=== PATIENT | female | born 1990 | race Caucasian/White ===

== ENCOUNTER 2021-06-29 14:38 | Emergency (ER) | payer SELFPAY ==
[2021-06-29] VITALS (20 sets, daily range): BP systolic 99–141; BP diastolic 66–91; PULSE 95–119; RESP 9–20; TEMP 36.5; O2SAT 97–100
--- NOTE | 2021-06-29 14:45 | RT.EKG_ITS ---
APPROVED REPORT Exam: Resting ECG Reason for Exam: overdose Patient Location: E HR:111 bpm ECG Measurements Heart Rate 111 AXIS AL 142 P 50 QRSd 81 QRS 67 QT 338 T 4 QTc 460 Conclusion Sinus tachycardia...rate> 99
--- NOTE | 2021-06-29 14:55 | ED.GENADUL_ITS ---
Discharge Plan Disposition Patient Disposition: HOME Condition: Stable Discharge Details Clinical Impression: Drug reaction, Urinary tract infection Primary Care Provider: Olena,Local ED Provider: Tj Singh Home Meds and New Rx's Prescriptions: New nitrofurantoin monohyd/m-cryst [Macrobid] 100 mg capsule 100 mg PO Q12H 5 Days Qty: 10 RF: 0 Discharge Instructions Instructions: Urinary Tract Infection in Women (ED) Additional Instructions: follow up with your primary care provider within 1 week you are being treated for a urinary tract infection if you feel more ill, have severe worsening pain or persistent vomit return to the emergency department Medical Decision Making 30 yo female who has a history per her report of subtanse abuse comes in after she inhaled an unknown drug that was given to her and shortly after started to feel like her insides are burning and weakness. She states she was given an unknown drug in a tablet form, has no way of findings out what it was. She inhaled it through her nose after crushing it. SHe denies loc and has no chest pain. SHe is very anxious on exam and is restless in the bed, caox4 with clear speech, no focal neuro deficits, denies alcohol use today. No si/hi. Suspect based on her presentation she is having a panic attack from the drug she was given. Will evaluate for other co-ingestants and treat with ativan and reassess. pt less anxious and feels better no longer having her previous symptoms, urine does have evidence of uti on urine and has had 1 week of burning, no fevers or cva tenderness so doubt pyelo. Will start macrobid. Offered football coach but patient declined. ADvised to f/u with pcp and return precautions given Differential Diagnosis Differential Diagnosis: drug reaction, overdose Lab Data Lab results reviewed: Yes I reviewed the patient's lab results. ECG Data Attestation: I personally reviewed and interpreted this ECG (s) as follows: Prior ECG tracings: not available for review Interpretation: sinus tachycardia, rate of 111, pr 142, no acute st t wave ischemic findings HPI General Mode of arrival: wheelchair . Date/Time Provider Initiated Documentation: 06/29/21 14:48 . Limitations to Documentation: no limitations . Information obtained by: patient . History of Present Illness 30 year old F presents to the emergency department with the chief complaint of not feeling right, Patient started experiencing this minute(s) (30) and it has been constant. No relieving factors improve symptom(s), No exacerbating factors reported . Patient did receive the following treatments prior to arrival, none Related Data Home Medications Medication Instructions Recorded Confirmed nitrofurantoin monohyd/m-cryst 100 mg PO Q12H 5 Days #10 cap 06/29/21 [Macrobid] Previous Rx's Medication Instructions Recorded nitrofurantoin monohyd/m-cryst 100 mg PO Q12H 5 Days #10 cap 06/29/21 [Macrobid] Allergies Allergy/AdvReac Type Severity Reaction Status Date / Time No Known Allergies Allergy Unverified 06/29/21 14:44 General Stated Complaint: OD/Poison TERESITA: 2 Review of Systems All systems reviewed & are unremarkable except as noted in HPI and below Constitutional Constitutional: Denies chills and Denies fever(s) Respiratory Respiratory: Denies cough Gastrointestinal Gastrointestinal: Denies abdominal pain and Denies vomiting Musculoskeletal Musculoskeletal: Denies joint swelling Psychiatric Psychiatric: Denies depression PFSH Social History Smoking/Tobacco Use Status: Current every day Smoking risk assessment performed?: Yes Alcohol Intake: current Alcohol Intake frequency: 3 or more drinks per day Substance use type: opiates Exam Const General: anxious Orientation: alert HENMT Head: normal to inspection Ears: external ears normal General nose exam: external nose normal Mouth: moist mucous membranes Eyes General: appearance normal, both eyes and all related structures Neck Neck: normal visual inspection Resp Effort & Inspection: normal respiratory effort and able to speak in complete sentences Cardio Rate: regular rate Skin General skin exam: no rashes or lesions noted Neuro General: patient alert and patient oriented x3 Extrem General: normal to inspection Course Vital Signs Vital signs: Vital Signs Temperature 36.5 C 06/29/21 14:44 Pulse 119 H 06/29/21 14:44 Respiratory Rate 06/29/21 14:44 Blood Pressure 141/91 H 06/29/21 14:44 Pulse Oximetry 100 06/29/21 14:44 Temperature 36.5 C 06/29/21 14:44 Temperature Source Temporal Artery Scan 06/29/21 14:44 Pulse 119 H 06/29/21 14:44 Respiratory Rate 06/29/21 14:44 Respiratory Effort Non-Labored 06/29/21 14:47 Blood Pressure 141/91 H 06/29/21 14:44 Blood Pressure Position Supine 06/29/21 14:44 Pulse Oximetry 100 06/29/21 14:44 Oxygen Delivery Method Room Air 06/29/21 14:44 Oxygen Flow Rate 0 06/29/21 14:44 Pain Level 0 06/29/21 14:44
[2021-06-29] MEDS: Normal Saline 1,000 ML 1000 ML IV (15:00)
[2021-06-29 15:07] LABS: Abs Immature Grans 0.02 10^3/uL (0.0-0.06); Absolute Basophil Count 0.03 10^3/uL (0.0-0.2); Absolute Eosinophil Count 0.04 10^3/uL (0.0-0.7); Absolute Lymphocyte Count 1.57 10^3/uL (1.2-3.4); Absolute Monocyte Count 0.39 10^3/uL (0.1-0.8); Absolute Neutrophil Count 2.61 10^3/uL (1.2-6.7); Basophils % 0.6; Eosinophils % 0.9; HCT 38.2 % (36.0-46.0); HGB 11.6 g/dL (11.2-15.7); Immature Grans % 0.4; Lymphocytes % 33.7; MCH 27.9 pg (27.0-33.0); MCHC 30.4 % (32.0-36.0); MCV 91.8 fL (80-95); MPV 9.2 fL (8.0-11.0); Monocytes % 8.4; Nucleated RBC 0 %; Platelet Count 346 10^3/uL (130-400); RBC 4.16 10^6/uL (3.93-5.22); RDW 13.2 % (11.7-14.6); WBC 4.66 10^3/uL (4.4-10.8)
[2021-06-29 15:28] LABS: ALT 57 U/L (14-59); AST 81 U/L (15-37); Albumin 3.6 g/dL (3.4-5.0); Alkaline Phosphatase 120 U/L (46-116); Anion Gap 12.5 mmol/L (3-11); BUN 6 mg/dL (7-18); Bilirubin, Total 0.2 mg/dL (0.2-1.0); CO2 25.5 mmol/L (21.0-32.0); CREATININE 1.1 mg/dL (0.55-1.02); Calcium 8.5 mg/dL (8.5-10.1); Chloride 101 mmol/L (98-107); Estimated GFR 57.93 (mL/min/1.73m2); Glucose 364 mg/dL (74-106); Potassium 3.5 mmol/L (3.5-5.1); Sodium 139 mmol/L (136-145); Total Protein 7.9 g/dL (6.4-8.2)
[2021-06-29 15:30] LABS: ETHANOL BLOOD < 3.0 mg/dL (<3)
[2021-06-29 15:41] LABS: Bilirubin Negative (Negative); Blood Trace-intact (Negative); Clarity Sl Cloudy (Clear); Glucose >=1000 mg/dL (Negative); Ketones Negative (Negative); Leukocyte Esterase Negative (Negative); Nitrite Negative (Negative)
[2021-06-29 15:45] LABS: *AMPHETAMINES SCREEN URINE Negative (Negative); *BARBITURATES SCREEN URINE Negative (Negative); *BENZODIAZEPINES SCREEN URINE Negative (Negative); Cannabinoids THC Negative (Negative); Cocaine Screen,Urine Negative (Negative); METHADONE URINE SCREEN Negative (Negative); OPIATES URINE SCREEN Positive (Negative)
[2021-06-29 15:46] LABS: Salicylate 3.8 mg/dL (<2.8)
[2021-06-29 15:46] LABS: Tricyclic Antidepressants Negative (Negative)
[2021-06-29 15:47] LABS: Acetaminophen < 2 ug/mL (10-30)
[2021-06-29 15:57] LABS: Bacteria Moderate HPF (Negative); C & S Indicated? Yes; Casts Negative LPF (Negative); Crystals Negative HPF (Negative); Epithelial Cells Few HPF (Negative); Mucus Negative (Negative); RBC 0-2 HPF (0-2)
[2021-06-29] MEDS: MacroBID 100 MG CAP PO (16:54)
== END 2021-06-29 16:53 | disposition home or self-care (01) ==
LOC: ER 16:52
PROVIDERS: Emergency Provider Emergency Medicine
DX: R00.0 Tachycardia, unspecified (principal); R45.1 Restlessness and agitation; F41.9 Anxiety disorder, unspecified; T40.2X5A Adverse effect of other opioids, initial encounter; N39.0 Urinary tract infection, site not specified; B96.20 Unspecified Escherichia coli [E. coli] as the cause of diseases classified elsewhere
CPT/HCPCS: 36415; 80053; 80307; 81025; 87077; 93005; 96360; 96361; 99284; 80320; 80329; 81003; 81015; 83735; 84443; 85025; 87086; 87186; 93010

== ENCOUNTER 2022-03-29 19:59 | Emergency (ER) | payer MEDICAID, SELFPAY ==
[2022-03-29] VITALS (33 sets, daily range): BP systolic 126–132; BP diastolic 80–86; PULSE 90–120; RESP 18; TEMP 37; O2SAT 97–100
--- NOTE | 2022-03-29 20:06 | W.ED.GENAD ---
Discharge Plan Disposition Patient Disposition: HOME Condition: Good Discharge Details Clinical Impression: Accidental overdose Primary Care Provider: Unknown,Unknown ED Provider: Claus Loco Home Meds and New Rx's Prescriptions: No Action atenolol 25 MG tablet 25 mg PO DAILY PRN Discharge Instructions Instructions: Opioid Safety (ED) Additional Instructions: At this time. Her work-up and clinical assessment is reassuring. You likely accidentally overdosed from an opiate like substance. Please continue to do your best to avoid these substances if at all possible. If you notice any worsening of your symptoms, or any new symptoms such as vomiting, diarrhea, fever, chills, shortness of breath, chest pain, numbness, weakness, or fainting , please return immediately to the emergency department for reevaluation. Please follow up with your primary care provider as soon as possible for reassessment and reevaluation. As always, it was a pleasure participating in your medical care today. Medical Decision Making This is a 31-year-old female with a past medical history of Graves' disease, anxiety/panic attacks, who presents today after overdose. EMS states they were called to the scene when the patient was in respiratory arrest. She was given Narcan 20 minutes prior to arrival here in the emergency department. She had notable improvement of her symptoms after Narcan, and began breathing normally and mentating normally shortly after administration. Patient states that she does not recall taking any drugs. She states that she was drinking alcohol but denies anything else. She states that she feels like I am in a panic attack right now. She states that she has overdosed once previously last summer in a similar situation. She denies any thoughts of self-harm or harm to others. She denies any other IV or illicit drug use. She denies any chest pain, headache, or neck pain. No other complaints at this time. No other modifying factors. Physical exam demonstrates well-appearing female, albeit slightly nervous and anxious appearing. Mucous membranes are very dry. Normal neurologic assessment on exam. Lungs are clear. Differential includes current panic attack, dehydration compounded by intoxication. Less likely thyroid storm. We will rehydrate, get labs, monitor and observe the patient and reassess. 10 PM Patient has been observed for 2 hours, she feels well. She has been monitored and shows no hypoxemia bradycardia or other hemodynamic instability. Patient would like to go home. I did inform the patient of her urine drug screen results, and she is notably distraught very upset. She continues to state that she did not willingly or knowingly take anything, she is concerned about her friend choices as of late. She denies any desire for self-harm. Narcan has been offered. Patient will be discharged home. I have extensively reviewed the treatment plan and discharge instructions with the patient. I have addressed all patient concerns at this time. The patient was made aware of what symptoms to monitor for that would warrant a return to the emergency department. Discussed the plan with the patient, they demonstrate verbal understanding and agreement with our assessment and plan at this time. The documentation in this chart was dictated using [employer] dictation software. Please excuse any dictation errors. HPI General Date/Time Provider Initiated Documentation: 03/29/22 20:05. HPI Narrative: This is a 31-year-old female with a past medical history of Graves' disease, anxiety/panic attacks, who presents today after overdose. EMS states they were called to the scene when the patient was in respiratory arrest. She was given Narcan 20 minutes prior to arrival here in the emergency department. She had notable improvement of her symptoms after Narcan, and began breathing normally and mentating normally shortly after administration. Patient states that she does not recall taking any drugs. She states that she was drinking alcohol but denies anything else. She states that she feels like I am in a panic attack right now. She states that she has overdosed once previously last summer in a similar situation. She denies any thoughts of self-harm or harm to others. She denies any other IV or illicit drug use. She denies any chest pain, headache, or neck pain. No other complaints at this time. No other modifying factors. Related Data Home Medications Medication Instructions Recorded Confirmed atenolol 25 mg tablet 25 mg PO DAILY PRN 07/16/17 07/16/17 Allergies Allergy/AdvReac Type Severity Reaction Status Date / Time No Known Allergies Allergy Unverified 07/16/17 16:28 Review of Systems All systems reviewed & are unremarkable except as noted in HPI and below PFSH All Active Problems (Updated 03/29/22 @ 21:42 by Claus Loco DO) Accidental overdose (Acute) Social History Smoking/Tobacco Use Status: Current every day Tobacco Type: cigarettes Smoking risk assessment performed?: Yes Alcohol Intake: current Drug use: Occasionally Substance use type: marijuana Details: Patient states does not take any drugs except alcohol and cigarettes Do you feel safe at home: Yes Do you feel safe in your relationship?: Yes Exam Narrative Exam Narrative: 1.Const: Well-nourished, Well-developed, appearing stated age 2.Eyes: PERRL, no conjunctival injection, and symmetrical lids. 3.ENT: Atraumatic external nose and ears. Moist MM. Neck: Symmetric, trachea midline, No thyromegaly. 4.CVS: +S1/S2, No murmurs or gallops. Peripheral pulses 2+ and equal in all extremities. Brisk capillary refill in all extremities. 5.RESP: Unlabored respiratory effort. Clear to auscultation bilaterally. No wheezes rales or rhonchi 6.GI: Soft, Nontender/Nondistended, No hepatosplenomegaly. No guarding or rebound. 7.MSK: Normocephalic/Atraumatic, Extremities w/o deformity or ttp No cyanosis or clubbing, Normal movement of all extremities 8.Skin: Warm, Dry. No rashes or lesions. 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 Sensation grossly intact, no focal neurologic deficits. All 6 cardinal planes of vision are fully intact. No evidence of rotatory or vertical nystagmus. The patient demonstrated a normal egxdds-inma-zcorny, good dexterity. There was no evidence of dysdiadochokinesia. Patient was able to ambulate without difficulty. There was no wide-based gait. Sensation was intact bilaterally as well as muscle strength bilaterally for all extremities. Patient was able to verbalize butter cup with no slurring, or miss pronunciation. 10.Psych: (AAO) x3. Appropriate mood and affect
[2022-03-29] MEDS: Normal Saline 1,000 ML 1000 ML IV (20:41)
[2022-03-29 20:52] LABS: Abs Immature Grans 0.05 10^3/uL (0.0-0.06); Absolute Basophil Count 0.05 10^3/uL (0.0-0.2); Absolute Eosinophil Count 0.05 10^3/uL (0.0-0.7); Absolute Lymphocyte Count 2.18 10^3/uL (1.2-3.4); Absolute Neutrophil Count 8.35 10^3/uL (1.2-6.7); Basophils % 0.4; Eosinophils % 0.4; HCT 39.9 % (36.0-46.0); Immature Grans % 0.4; Lymphocytes % 19.3; MCH 25.5 pg (27.0-33.0); MCHC 30.1 % (32.0-36.0); MCV 85 fL (80-95); MPV 9.4 fL (8.0-11.0); Monocytes % 5.7; Neutrophils % 73.8; Platelet Count 260 10^3/uL (130-400); RDW-SD 52.2 fL; WBC 11.32 10^3/uL (4.4-10.8)
[2022-03-29 20:54] LABS: Absolute Monocyte Count 0.65 10^3/uL (0.1-0.8)
[2022-03-29 21:12] LABS: ALT 49 U/L (14-59); AST 75 U/L (15-37); Albumin 4.1 g/dL (3.4-5.0); Alkaline Phosphatase 97 U/L (46-116); Anion Gap 12.5 mmol/L (3-11); BUN 9 mg/dL (7-18); Bilirubin, Total 0.1 mg/dL (0.2-1.0); CO2 24.5 mmol/L (21.0-32.0); CREATININE 0.8 mg/dL (0.55-1.02); Calcium 8.4 mg/dL (8.5-10.1); Chloride 105 mmol/L (98-107); ETHANOL BLOOD 203.9 mg/dL (<10); Glucose 166 mg/dL (74-106); Potassium 3.5 mmol/L (3.5-5.1); Sodium 142 mmol/L (136-145); TSH (W/Ref FT4) 2.47 uIU/mL (0.36-3.74); Total Protein 8.4 g/dL (6.4-8.2)
[2022-03-29 21:29] LABS: Salicylate 4.4 mg/dL (<2.8)
[2022-03-29 21:30] LABS: Acetaminophen < 2 ug/mL (10-30)
[2022-03-29 21:37] LABS: *AMPHETAMINES SCREEN URINE Negative (Negative); *BARBITURATES SCREEN URINE Negative (Negative); *BENZODIAZEPINES SCREEN URINE Negative (Negative); Cannabinoids THC Negative (Negative); Cocaine Screen,Urine Positive (Negative); METHADONE URINE SCREEN Negative (Negative); OPIATES URINE SCREEN Positive (Negative)
[2022-03-29 21:42] LABS: Tricyclic Antidepressants Negative (Negative)
== END 2022-03-29 22:02 | disposition home or self-care (01) ==
LOC: ER 22:06
PROVIDERS: Emergency Provider Student in an Organized Health Care Education/Training Program
DX: T50.901A Poisoning by unspecified drugs, medicaments and biological substances, accidental (unintentional), initial encounter (principal); R09.2 Respiratory arrest
CPT/HCPCS: 36415; 80053; 80307; 96360; 99284; 80320; 80329; 84443; 85025; 99283